=== PATIENT | female | born 1950 | race Caucasian/White ===

== ENCOUNTER 2019-10-26 06:42 | Day surgery (SDC) | payer MEDICARE, MEDICAID ==
[~2019-10-26] VITALS: Ht 167.6 cm; Wt 82.5 kg
[2019-10-26] MEDS ORDERED: normal saline 1000ml 1,000 ML IV SCH (07:10)
[2019-10-26 07:32] LABS: BASOPHILS # (AUTO) 0.1 X10'3 (0-0.2); BASOPHILS % (AUTO) 1.3 % (0-1); EOSINOPHILS # (AUTO) 0.3 X10'3 (0-0.9); HEMATOCRIT 38.7 % (35.0-45.0); LYMPHOCYTES # (AUTO) 3.1 X10'3 (1.1-4.8); LYMPHOCYTES % (AUTO) 41.2 % (21-51); MEAN CORPUSCULAR HEMOGLOBIN 30.2 PG (27.0-31.0); MEAN CORPUSCULAR HGB CONC 33.7 g/dL (33.0-36.5); MEAN CORPUSCULAR VOLUME 89.5 FL (78-98); MEAN PLATELET VOLUME 6.3 FL (7.4-10.4); MONOCYTES # (AUTO) 0.7 X10'3 (0-0.9); MONOCYTES % (AUTO) 9.4 % (2-12); NEUTROPHILS # (AUTO) 3.3 X10'3 (1.8-7.7); NEUTROPHILS % (AUTO) 44.1 % (42-75); PLATELET COUNT 317 X10'3 (140-440); RED BLOOD COUNT 4.32 X10'6 (4.20-5.60); RED CELL DISTRIBUTION WIDTH 15.5 % (11.5-14.5); WHITE BLOOD COUNT 7.6 X10'3 (4.5-11.0)
[2019-10-26] MEDS ORDERED: VARE0.5T PO (07:40)
[2019-10-26] MEDS ORDERED: ONDA8TAB65 PO (07:40)
[2019-10-26] MEDS ORDERED: VIT1TABL48 PO (07:40)
[2019-10-26] MEDS ORDERED: SEVE800T8 PO (07:40)
[2019-10-26] MEDS ORDERED: HCTZ25T PO (07:40)
[2019-10-26] MEDS ORDERED: DIPH25TA25 PO (07:40)
[2019-10-26] MEDS ORDERED: ASPI81TA52 PO (07:40)
[2019-10-26] MEDS ORDERED: FURO80TA3 PO (07:40)
[2019-10-26 07:41] LABS: ALBUMIN 3.5 G/DL (3.4-5.0); ANION GAP 8 (8-16); BLOOD UREA NITROGEN 39 MG/DL (7-18); BUN/CREATININE RATIO 7.4 (6.6-38.0); CALCIUM 8.9 MG/DL (8.5-10.1); CHLORIDE 98 MMOL/L (99-107); CREATININE 5.28 MG/DL (0.40-0.90); GLUCOSE 99 MG/DL (70-104); POTASSIUM 4.1 MMOL/L (3.5-5.1); SODIUM 138 MMOL/L (135-145); TOTAL CARBON DIOXIDE 31.7 MMOL/L (24-32); eGFR 8 ML/MIN
[2019-10-26 07:42] VITALS: BP 148/75
[2019-10-26] MEDS ORDERED: iohexol 300mg/ml 100ml inj. ONE (08:41)
[2019-10-26] MEDS ORDERED: fentaNYL/PF 50MCG/1 ML 2ML syringe ONE ×2 (08:41→09:07)
[2019-10-26] MEDS ORDERED: LIDOcaine 1%/PF 5ML 10 MG/ML VIAL ONE (08:41)
[2019-10-26] MEDS ORDERED: midazolam 2 mg/2 ml injection ONE ×2 (08:41→09:06)
[2019-10-26] MEDS ORDERED: heparin 1,000 UNITS/NS 500ml 500 ML ONE (08:41)
[2019-10-26 09:30] VITALS: BP 133/89
[2019-10-26 09:45] VITALS: BP 141/89
[2019-10-26 10:00] VITALS: BP 134/75
[2019-10-26 10:15] VITALS: BP 148/64
[2019-10-26 10:30] VITALS: BP 148/64
== END 2019-10-26 10:30 | disposition home or self-care (01) ==
LOC: SSTAY O 06:42
PROVIDERS: ATTEND Radiology Vascular & Interventional Radiology
DX: T82.858A Stenosis of other vascular prosthetic devices, implants and grafts, initial encounter (principal); E11.22 Type 2 diabetes mellitus with diabetic chronic kidney disease; I12.9 Hypertensive chronic kidney disease with stage 1 through stage 4 chronic kidney disease, or unspecified chronic kidney disease; N18.9 Chronic kidney disease, unspecified; Y83.2 Surgical operation with anastomosis, bypass or graft as the cause of abnormal reaction of the patient, or of later complication, without mention of misadventure at the time of the procedure; Y92.89 Other specified places as the place of occurrence of the external cause; Z99.2 Dependence on renal dialysis; Z90.710 Acquired absence of both cervix and uterus; Z90.49 Acquired absence of other specified parts of digestive tract; Z98.890 Other specified postprocedural states; Z79.82 Long term (current) use of aspirin; Z79.899 Other long term (current) drug therapy
CPT/HCPCS: 36415; 36902; 80048; 85025; 99152; 99153; C1725; C1769; C1894; J1644; J2250; J3010; Q9967

== ENCOUNTER 2019-11-02 12:27 | Observation (INO) | payer MEDICARE, MEDICAID ==
[2019-11-02] VITALS (14 sets, daily range): BP systolic 145–168; BP diastolic 54–75
[~2019-11-02] VITALS: Ht 167.6 cm; Wt 84.5 kg
[~2019-11-02 12:27] MED LIST: ASPI81TA52 PO; DIPH25TA25 PO; FURO80TA3 PO; HCTZ25T PO; ONDA8TAB65 PO; SEVE800T8 PO; VARE0.5T PO; VIT1TABL48 PO
[2019-11-02] MEDS ORDERED: aspirin 81mg tab.chew PO ONE (12:35)
[2019-11-02] MEDS ORDERED: CYCL-1 PO (13:06)
[2019-11-02] MEDS ORDERED: OMEP-50 PO (13:06)
--- NOTE | 2019-11-02 13:07 | NUR ---
: Gurwinder Ponce. phone number: [phone] he is parked in green subaru at handicapped parking spot at the front entrance of the er.
[2019-11-02 13:16] LABS: BASOPHILS # (AUTO) 0.1 X10'3 (0-0.2); BASOPHILS % (AUTO) 1.1 % (0-1); EOSINOPHILS # (AUTO) 0.1 X10'3 (0-0.9); EOSINOPHILS % (AUTO) 1.8 % (0-6); HEMATOCRIT 38.6 % (35.0-45.0); HEMOGLOBIN 12.7 g/dl (12.0-16.0); LYMPHOCYTES # (AUTO) 2.7 X10'3 (1.1-4.8); LYMPHOCYTES % (AUTO) 38.2 % (21-51); MEAN CORPUSCULAR HEMOGLOBIN 29.6 PG (27.0-31.0); MEAN CORPUSCULAR HGB CONC 32.8 g/dL (33.0-36.5); MEAN PLATELET VOLUME 6.6 FL (7.4-10.4); MONOCYTES # (AUTO) 0.5 X10'3 (0-0.9); MONOCYTES % (AUTO) 6.6 % (2-12); NEUTROPHILS # (AUTO) 3.7 X10'3 (1.8-7.7); NEUTROPHILS % (AUTO) 52.3 % (42-75); PLATELET COUNT 338 X10'3 (140-440); RED BLOOD COUNT 4.29 X10'6 (4.20-5.60); RED CELL DISTRIBUTION WIDTH 15.4 % (11.5-14.5); WHITE BLOOD COUNT 7.1 X10'3 (4.5-11.0)
[2019-11-02 13:32] LABS: PARTIAL THROMBOPLASTIN TIME 29 SECONDS (22-32)
[2019-11-02 13:45] LABS: ALANINE AMINOTRANSFERASE 19 U/L (12-78); ALBUMIN 3.6 G/DL (3.4-5.0); ALBUMIN/GLOBULIN RATIO 0.8 (1.1-1.5); ALKALINE PHOSPHATASE 69 IU/L (46-116); ANION GAP 11 (8-16); ASPARTATE AMINO TRANSFERASE 13 U/L (10-37); BILIRUBIN,TOTAL 0.3 MG/DL (0.1-1.0); BLOOD UREA NITROGEN 68 MG/DL (7-18); BUN/CREATININE RATIO 10.7 (6.6-38.0); CALCIUM 8.9 MG/DL (8.5-10.1); CHLORIDE 93 MMOL/L (99-107); CREATININE 6.37 MG/DL (0.40-0.90); GLUCOSE 103 MG/DL (70-104); POTASSIUM 3.6 MMOL/L (3.5-5.1); SODIUM 133 MMOL/L (135-145); TOTAL CARBON DIOXIDE 28.9 MMOL/L (24-32); eGFR 7 ML/MIN
[2019-11-02] MEDS ORDERED: potassium Cl 20 mEq SR tablet PO PRN ×2 (13:50)
[2019-11-02] MEDS ORDERED: magnesium Cl slow-release 64mg tablet PO PRN (13:50)
[2019-11-02] MEDS ORDERED: magnesium 4gm in 100ml NS 100 ML IV PRN (13:50)
[2019-11-02] MEDS ORDERED: magnesium 2GM in 50ml NS 50 ML IV PRN (13:50)
[2019-11-02] MEDS ORDERED: ondansetron/PF 4mg/2ml inj IV PRN (13:50)
[2019-11-02] MEDS ORDERED: potassium CL 10mEq/100ml bag 100 ML IV PRN ×2 (13:50)
[2019-11-02 13:59] LABS: MAGNESIUM 2.6 MG/DL (1.5-2.4)
--- NOTE | 2019-11-02 15:36 | NUR ---
Patient in room PCU 3027 from ED. I have received report from Evy WEST and had the opportunity to ask questions and assume patient care.
[2019-11-02] MEDS ORDERED: LIDOcaine 1% 30ml preserv. free vial ONE (17:46)
[2019-11-02] MEDS ORDERED: ceFAZolin 1000mg inj ONE ×2 (17:46→19:03)
--- NOTE | 2019-11-02 17:48 | NUR ---
Problems reprioritized. Patient report given, questions answered & plan of care reviewed with Warren WEST in OR, pt is taken to OR for Pacemaker placement.
[2019-11-02] MEDS ORDERED: midazolam 2 mg/2 ml injection ONE (18:10)
[2019-11-02] MEDS ORDERED: fentaNYL/PF 50MCG/1 ML 2ML syringe ONE (18:10)
--- NOTE | 2019-11-02 18:10 | NUR ---
Patient in room PCU 3027. I have received report from BRETT Kelsey and had the opportunity to ask questions and assume patient care.
--- NOTE | 2019-11-02 18:17 | NUR ---
Problems reprioritized. Patient report given, questions answered & plan of care reviewed with Brenda WEST.
[2019-11-02] MEDS ORDERED: LIDOcaine 1%/PF 5ML 10 MG/ML VIAL ONE (19:03)
[2019-11-02] MEDS ORDERED: propofol inj 20 ML IV ONE (19:03)
--- NOTE | 2019-11-02 19:15 | NUR ---
Received from OR via BED, accompanied by Anesthesiologist ASHLEY and report given by Anesthesiolgist. PATIENT A&OX4, DENIES PAIN, V/S WNL, EKG DONE AND SHOWED TO DR THOMASON AT 1930, SCD ON, 20G PIV RUE X2, DRESSING TO LEFT CHEST FOR PACER CDI WITH SLING ON AND 1L BAG FOR PRESSURE TO SURGICAL SITE PER DR THOMASON.
[2019-11-02] MEDS ORDERED: HYDROcodone/acetaminophen 10/325mg tab PO PRN (19:20)
[2019-11-02] MEDS: K and/or MAG REPLACEMENT MC SCH (19:50)
--- NOTE | 2019-11-02 19:55 | NUR ---
PATIENT A&OX4, DENIES PAIN, V/S WNL, PATIENTS TELE IN PCU, SCD ON, 20G PIV RUE X2, DRESSING TO LEFT CHEST FOR PACER CDI WITH SLING ON AND 1L BAG FOR PRESSURE TO SURGICAL SITE PER DR THOMASON. PATIENT TAKEN TO 3027B PCU AND HOOKED UP TO MONITORS IN [place] REPORT GIVEN TO BAND DIRECTOR WHO HAS TAKEN OVER PATIENT CARE.
--- NOTE | 2019-11-02 20:00 | NUR ---
Patient arrived in stable condition. A&Ox4, vital signs were stable on arrival and recorded. Patient denied pain and SOB.
[2019-11-02] MEDS: HYDROcodone/acetaminophen 5mg/325mg tablet PO PRN (21:48)
[2019-11-03] VITALS: BP 151/69
[2019-11-03] MEDS ORDERED: ceFAZolin 1GM/D5W- ADD-VANTAGE 50 ML IV SCH
--- NOTE | 2019-11-03 | NUR ---
Called MD to ask if 12 hr Troponin is wanted for 0030 or to be rescheduled because S/P pacemaker placement. said to cancel it at 0030 and reschedule for 0700.
[2019-11-03] MEDS: ceFAZolin 1GM/D5W- ADD-VANTAGE 50 ML IV SCH ×2 (01:41→07:44)
[2019-11-03 02:30] VITALS: BP 150/79
[2019-11-03] MEDS: HYDROcodone/acetaminophen 5mg/325mg tablet PO PRN ×2 (04:24→10:59)
[2019-11-03] MEDS: diphenhydrAMINE 25 MG/10 ML UD oral solution PO PRN ×2 (05:10→11:29)
[2019-11-03 06:00] VITALS: BP 161/69
--- NOTE | 2019-11-03 06:18 | NUR ---
Problems reprioritized. Patient report given, questions answered & plan of care reviewed with BRETT Kelsey.
--- NOTE | 2019-11-03 06:30 | NUR ---
Patient in room PCU 3027. I have received report from Brenda WEST and had the opportunity to ask questions and assume patient care.
[2019-11-03 07:08] LABS: BASOPHILS # (AUTO) 0.1 X10'3 (0-0.2); BASOPHILS % (AUTO) 0.9 % (0-1); EOSINOPHILS # (AUTO) 0.2 X10'3 (0-0.9); EOSINOPHILS % (AUTO) 2.9 % (0-6); HEMATOCRIT 36.3 % (35.0-45.0); HEMOGLOBIN 12.4 g/dl (12.0-16.0); LYMPHOCYTES # (AUTO) 2.2 X10'3 (1.1-4.8); LYMPHOCYTES % (AUTO) 32.5 % (21-51); MEAN CORPUSCULAR HEMOGLOBIN 30.4 PG (27.0-31.0); MEAN CORPUSCULAR HGB CONC 34.2 g/dL (33.0-36.5); MEAN CORPUSCULAR VOLUME 88.8 FL (78-98); MEAN PLATELET VOLUME 6.5 FL (7.4-10.4); MONOCYTES # (AUTO) 0.5 X10'3 (0-0.9); MONOCYTES % (AUTO) 7.1 % (2-12); NEUTROPHILS # (AUTO) 3.8 X10'3 (1.8-7.7); NEUTROPHILS % (AUTO) 56.6 % (42-75); PLATELET COUNT 303 X10'3 (140-440); RED BLOOD COUNT 4.09 X10'6 (4.20-5.60); RED CELL DISTRIBUTION WIDTH 14.9 % (11.5-14.5); WHITE BLOOD COUNT 6.8 X10'3 (4.5-11.0)
[2019-11-03 07:39] LABS: ALBUMIN 3.3 G/DL (3.4-5.0); ANION GAP 11 (8-16); BLOOD UREA NITROGEN 74 MG/DL (7-18); BUN/CREATININE RATIO 12.2 (6.6-38.0); CALCIUM 8.9 MG/DL (8.5-10.1); CHLORIDE 96 MMOL/L (99-107); CREATININE 6.06 MG/DL (0.40-0.90); GLUCOSE 94 MG/DL (70-104); MAGNESIUM 2.5 MG/DL (1.5-2.4); POTASSIUM 3.2 MMOL/L (3.5-5.1); SODIUM 135 MMOL/L (135-145); TOTAL CARBON DIOXIDE 27.9 MMOL/L (24-32); TROPONIN I 0.16 NG/ML (0.0-0.05); eGFR 7 ML/MIN
[2019-11-03] MEDS ORDERED: normal saline 1000ml 250 ML IV PRN (08:00)
[2019-11-03] MEDS ORDERED: epoetin 20,000 units/ml inj IV ONE (08:00)
[2019-11-03] MEDS: K and/or MAG REPLACEMENT MC SCH (08:00)
[2019-11-03] MEDS ORDERED: normal saline 1000ml 100 ML IV PRN (08:00)
[2019-11-03] MEDS ORDERED: LIDOcaine 1% (10mg/ml) 2ml vial SQ ONE (08:00)
[2019-11-03 11:00] VITALS: BP 151/65
--- NOTE | 2019-11-03 13:55 | NUR ---
PAGER ID: [phone] MESSAGE: [id number] Deepali Ponce: Pt is complaining of muscle spasms, takes cyclobenzaprine 10 mg prn, can we continue her home meds? thanks mariam [phone]
[2019-11-03] MEDS ORDERED: sevelamer carbonate 800mg tablet PO SCH (14:00)
[2019-11-03] MEDS ORDERED: metoprolol succinate 25mg (24-HOUR) SR. Tablet PO SCH (14:00)
[2019-11-03] MEDS ORDERED: non-formulary drug (Ondansetron HCl 1 TAB) PO PRN (14:00)
[2019-11-03] MEDS ORDERED: cyclobenzaprine 10mg tablet PO PRN (14:00)
[2019-11-03] MEDS ORDERED: varenicline tartrate 0.5mg tablet PO SCH (14:00)
[2019-11-03] MEDS ORDERED: DIPHENHYDRAMINE HCL PO PRN (14:00)
[2019-11-03] MEDS ORDERED: aspirin 81mg tablet.DR PO SCH (14:00)
[2019-11-03] MEDS ORDERED: HYDROchlorothiazide 25mg tablet PO SCH (14:00)
[2019-11-03 15:00] VITALS: BP 145/69
--- NOTE | 2019-11-03 15:45 | NUR ---
PAGER ID: [phone] MESSAGE: [id number] Deepali Ponce: Do you want to include Metoprolol succinate 25mg daily to discharge med list? Dr. Mckeon had me give earlier due to patient's HR sustained in 130's, dropped to 70's-80's after. thanks Troy [phone]
--- NOTE | 2019-11-03 15:58 | NUR ---
spoke to Dr. Bajwa in regards to adding metoprolol to discharge med list, was informed to make sure aircraft launch and recovery technician is ok with it, spoke to dr. foy answering service, waiting for response.
--- NOTE | 2019-11-03 17:50 | NUR ---
pt is stable for discharge per md orders, discharge instructions reviewed with pt and all questions answered, no new medication prescriptions, tele monitor removed, PIV dc'ed and clean dry dressing in place, pt discharges to home @ 1730, wheeled down to lobby with hospital staff to private vehicle with spouse, all belongings w/ pt at time of discharge.
[2019-11-03] MEDS ORDERED: furosemide 40mg tablet PO SCH (20:00)
[2019-11-04] MEDS ORDERED: vitamin B comp w/Vit. C tab 1 TAB TABLET PO SCH (08:00)
--- NOTE | 2019-11-06 15:05 | NUR ---
Case Management DC follow up: spoke to pt via telephone: Reports: "doing okay", "still feels like a truck drover over me" post pacemaker implant. states, last night 11/05/19, fellt a little light headed, went to bed, and feels just fine this morning. Denies acute/continuous CP, SOB, resp distress, emergent general pain, NV, dizziness, abd pain, CARRION, blurry vision, dizziness, syncope episodes, diaphoresis, fever. No s/s infection to implant site. Verbalizes understanding of Rx medications/continued/new, why prescribed. Taking as ordered, no ase noted r/t polypharmacy. Verbalizes understanding of s/s that warrant 9-11/ER visit for evaluation. Acknowledges importance of scheduling/keeping follow-up w/PCP MARTHA Edwards 11/30/19, specialist/manager globalCarlo 11/17/2019. Needs met, questions answered at DC. No further questions at this time.
== END 2019-11-03 18:03 | disposition home or self-care (01) ==
LOC: ER 12:27 → ED HOLD 13:49 → PCU 3S 15:07
PROVIDERS: ADMIT Internal Medicine; ATTEND Internal Medicine
DX: I45.9 Conduction disorder, unspecified (principal); R00.1 Bradycardia, unspecified; I44.1 Atrioventricular block, second degree; R42 Dizziness and giddiness; I12.0 Hypertensive chronic kidney disease with stage 5 chronic kidney disease or end stage renal disease; E11.22 Type 2 diabetes mellitus with diabetic chronic kidney disease; N18.6 End stage renal disease; K21.9 Gastro-esophageal reflux disease without esophagitis; Z99.2 Dependence on renal dialysis; Z90.710 Acquired absence of both cervix and uterus; Z79.899 Other long term (current) drug therapy; Z88.2 Allergy status to sulfonamides; Z91.040 Latex allergy status; Z91.048 Other nonmedicinal substance allergy status
CPT/HCPCS: 33208; 36415; 71045; 76000; 80048; 80053; 83735; 84484; 85025; 85610; 85730; 86885; 86900; 86901; 87081; 93005; 96365; 96366; 96375; 99291; C1785; G0378; J0690; J2001; J2250; J2405; J2704; J3010; J7040; Q0163; 90935; A4215; A4565; A4615; A6258; A7000; G0257

== ENCOUNTER 2019-11-10 13:44 | Inpatient (IN) | payer MEDICARE, MEDICAID ==
[~2019-11-10] VITALS: Ht 167.6 cm; Wt 183.4 kg
[~2019-11-10 13:44] MED LIST changes: +CYCL-1 PO; +OMEP-50 PO
[2019-11-10 14:23] LABS: BASOPHILS # (AUTO) 0.1 X10'3 (0-0.2); BASOPHILS % (AUTO) 0.8 % (0-1); EOSINOPHILS # (AUTO) 0.1 X10'3 (0-0.9); EOSINOPHILS % (AUTO) 0.7 % (0-6); HEMATOCRIT 39.3 % (35.0-45.0); HEMOGLOBIN 13.2 g/dl (12.0-16.0); LYMPHOCYTES # (AUTO) 1.8 X10'3 (1.1-4.8); LYMPHOCYTES % (AUTO) 23.8 % (21-51); MEAN CORPUSCULAR HEMOGLOBIN 30.1 PG (27.0-31.0); MEAN CORPUSCULAR HGB CONC 33.6 g/dL (33.0-36.5); MEAN CORPUSCULAR VOLUME 89.4 FL (78-98); MEAN PLATELET VOLUME 6.7 FL (7.4-10.4); MONOCYTES # (AUTO) 0.4 X10'3 (0-0.9); NEUTROPHILS # (AUTO) 5.3 X10'3 (1.8-7.7); NEUTROPHILS % (AUTO) 69.7 % (42-75); PLATELET COUNT 343 X10'3 (140-440); RED BLOOD COUNT 4.39 X10'6 (4.20-5.60); RED CELL DISTRIBUTION WIDTH 14.5 % (11.5-14.5); WHITE BLOOD COUNT 7.6 X10'3 (4.5-11.0)
[2019-11-10 14:32] LABS: ALBUMIN 3.4 G/DL (3.4-5.0); ALBUMIN/GLOBULIN RATIO 0.7 (1.1-1.5); ALKALINE PHOSPHATASE 65 IU/L (46-116); ANION GAP 14 (8-16); ASPARTATE AMINO TRANSFERASE 14 U/L (10-37); BILIRUBIN,TOTAL 0.5 MG/DL (0.1-1.0); BLOOD UREA NITROGEN 61 MG/DL (7-18); BUN/CREATININE RATIO 9.9 (6.6-38.0); CALCIUM 9.5 MG/DL (8.5-10.1); CHLORIDE 88 MMOL/L (99-107); CREATININE 6.18 MG/DL (0.40-0.90); D-DIMER 1.51 MG/L FEU (0-0.50); GLUCOSE 196 MG/DL (70-104); POTASSIUM 3.5 MMOL/L (3.5-5.1); SODIUM 128 MMOL/L (135-145); TOTAL PROTEIN 8.2 G/DL (6.4-8.2); eGFR 7 ML/MIN
[2019-11-10 14:33] LABS: ALANINE AMINOTRANSFERASE < 6 U/L (12-78)
[2019-11-10 14:34] LABS: TROPONIN I < 0.04 NG/ML (0.0-0.05)
[2019-11-10] MEDS ORDERED: proCHLORperazine 10 MG/2 ml inj ONE (15:20)
[2019-11-10] MEDS ORDERED: vancomycin 1,000mg inj ONE (15:21)
[2019-11-10] MEDS ORDERED: LIDOcaine 1% W/epiNEPHrine 1:100,000 20ml vial ONE (15:21)
[2019-11-10] MEDS ORDERED: fentaNYL/PF 50MCG/1 ML 2ML syringe ONE (15:21)
[2019-11-10] MEDS ORDERED: ceFAZolin 1000mg inj ONE (15:21)
[2019-11-10] MEDS ORDERED: midazolam 2 mg/2 ml injection ONE (15:21)
--- NOTE | 2019-11-10 15:21 | NUR ---
Stool sample collected and sent to the lab.
[2019-11-10] MEDS ORDERED: HYDROcodone/acetaminophen 5mg/325mg tablet PO PRN (15:30)
[2019-11-10] MEDS ORDERED: acetaminophen 325mg tablet PO PRN (15:30)
--- NOTE | 2019-11-10 15:35 | NUR ---
Pt up to [facility] for another BM, which is liquid.
--- NOTE | 2019-11-10 15:50 | NUR ---
Brennan 2 pink top and a green top via butterfly needle and vacutainer from right ac. Bandaid applied.
--- NOTE | 2019-11-10 16:09 | NUR ---
Called PCU and the pt is no longer going to bed 3020A, but instead 3008A so that she can be in a negative pressure room. They are currently contacting [facility] to clean the new room and then will be able to take report and the patient after that.
--- NOTE | 2019-11-10 17:57 | NUR ---
Called to give report to PCU and spoke to Kadi, charge nurse who states that it is shift change and the auto parts counter person nurse, Zakia will call as soon as she is done with report.
[2019-11-10] MEDS ORDERED: cyclobenzaprine 10mg tablet PO PRN (19:05)
[2019-11-10 19:30] VITALS: BP 168/62
[2019-11-10] MEDS ORDERED: ondansetron 4mg rapidly disintigrating tab PO PRN (19:30)
--- NOTE | 2019-11-10 19:30 | NUR ---
pt arrived to PCU unit from ER via sherylrjayson, pt is alert and oriented, pt is not in any respiratory distress, will continue to monitor pt
[2019-11-10] MEDS ORDERED: docusate sod 100mg capsule PO SCH (20:00)
[2019-11-10] MEDS: ondansetron/PF 4mg/2ml inj IV PRN (20:33)
[2019-11-10] MEDS: heparin, porcine 5000 units/ml vial SQ SCH (20:33)
[2019-11-10 22:00] VITALS: BP 154/71
--- NOTE | 2019-11-10 23:34 | NUR ---
PAGER ID: [phone] MESSAGE: Deepali Kris [id number] pt is nausea and vomiting, and zofran administered and was not helpful. was wondering if i could get something else ordered please? Thank you Tita WEST [phone]
[2019-11-11 02:00] VITALS: BP 159/74
[2019-11-11 06:00] VITALS: BP 113/43
--- NOTE | 2019-11-11 06:13 | NUR ---
Problems reprioritized. Patient report given, questions answered & plan of care reviewed with Rashida WEST.
--- NOTE | 2019-11-11 06:32 | NUR ---
Patient in room PCU 3010. I have received report from Tita WEST and had the opportunity to ask questions and assume patient care.
[2019-11-11] MEDS: varenicline tartrate 0.5mg tablet PO SCH (07:24)
[2019-11-11] MEDS: aspirin 81mg tablet.DR PO SCH (07:24)
[2019-11-11] MEDS: vitamin B comp w/Vit. C tab 1 TAB TABLET PO SCH (07:24)
[2019-11-11] MEDS: HYDROchlorothiazide 25mg tablet PO SCH (07:24)
[2019-11-11] MEDS: furosemide 40mg tablet PO SCH ×2 (07:24→19:33)
[2019-11-11] MEDS: sevelamer carbonate 800mg tablet PO SCH ×3 (07:24→17:28)
[2019-11-11] MEDS: pantoprazole 40mg Tablet.DR PO SCH (07:24)
[2019-11-11] MEDS: heparin, porcine 5000 units/ml vial SQ SCH ×2 (07:25→19:33)
[2019-11-11] MEDS ORDERED: normal saline 1000ml 250 ML IV PRN (08:00)
[2019-11-11] MEDS ORDERED: heparin 1,000 units/ml 10ml inj IV ONE (08:00)
[2019-11-11] MEDS ORDERED: LIDOcaine 1% (10mg/ml) 2ml vial SQ ONE ×2 (08:00→11:55)
[2019-11-11 09:23] LABS: BASOPHILS # (AUTO) 0.1 X10'3 (0-0.2); BASOPHILS % (AUTO) 0.9 % (0-1); EOSINOPHILS # (AUTO) 0.2 X10'3 (0-0.9); EOSINOPHILS % (AUTO) 2.5 % (0-6); HEMATOCRIT 37.4 % (35.0-45.0); HEMOGLOBIN 12.5 g/dl (12.0-16.0); LYMPHOCYTES # (AUTO) 2.1 X10'3 (1.1-4.8); LYMPHOCYTES % (AUTO) 29.5 % (21-51); MEAN CORPUSCULAR HEMOGLOBIN 29.8 PG (27.0-31.0); MEAN CORPUSCULAR HGB CONC 33.3 g/dL (33.0-36.5); MEAN CORPUSCULAR VOLUME 89.5 FL (78-98); MEAN PLATELET VOLUME 6.8 FL (7.4-10.4); MONOCYTES # (AUTO) 0.6 X10'3 (0-0.9); MONOCYTES % (AUTO) 8.3 % (2-12); NEUTROPHILS # (AUTO) 4.3 X10'3 (1.8-7.7); NEUTROPHILS % (AUTO) 58.8 % (42-75); PLATELET COUNT 319 X10'3 (140-440); RED BLOOD COUNT 4.18 X10'6 (4.20-5.60); RED CELL DISTRIBUTION WIDTH 14.6 % (11.5-14.5); WHITE BLOOD COUNT 7.3 X10'3 (4.5-11.0)
[2019-11-11 09:33] LABS: ALANINE AMINOTRANSFERASE 8 U/L (12-78); ALBUMIN 3.1 G/DL (3.4-5.0); ALBUMIN/GLOBULIN RATIO 0.7 (1.1-1.5); ALKALINE PHOSPHATASE 63 IU/L (46-116); ANION GAP 7 (8-16); ASPARTATE AMINO TRANSFERASE 16 U/L (10-37); BILIRUBIN,TOTAL 0.3 MG/DL (0.1-1.0); BLOOD UREA NITROGEN 71 MG/DL (7-18); BUN/CREATININE RATIO 10.4 (6.6-38.0); CALCIUM 9.1 MG/DL (8.5-10.1); CHLORIDE 92 MMOL/L (99-107); CREATININE 6.83 MG/DL (0.40-0.90); GLUCOSE 120 MG/DL (70-104); POTASSIUM 3.2 MMOL/L (3.5-5.1); SODIUM 128 MMOL/L (135-145); TOTAL CARBON DIOXIDE 28.6 MMOL/L (24-32); TOTAL PROTEIN 7.4 G/DL (6.4-8.2); eGFR 6 ML/MIN
[2019-11-11 09:36] LABS: MAGNESIUM 2.4 MG/DL (1.5-2.4); PHOSPHORUS 8.9 MG/DL (2.3-4.5)
[2019-11-11 10:28] LABS: C DIFF ANTIGEN NEGATIVE (NEGATIVE); C DIFF SPECIMEN=DIARRHEA? ACCEPTABLE; C DIFFICILE TOXINS A&B NEGATIVE (Neg)
[2019-11-11 11:00] VITALS: BP 106/42
[2019-11-11] MEDS ORDERED: potassium Cl 20 mEq SR tablet PO STA (11:10)
[2019-11-11 15:00] VITALS: BP_SYST 126; BP_SYST 142; BP_DIAS 51; BP_DIAS 79
[2019-11-11 18:00] VITALS: BP 131/49
--- NOTE | 2019-11-11 18:05 | NUR ---
Patient in room PCU 3010. I have received report from Rashida WEST and had the opportunity to ask questions and assume patient care.
--- NOTE | 2019-11-11 18:21 | NUR ---
Problems reprioritized. Patient report given, questions answered & plan of care reviewed with Mian WEST.
[2019-11-11 22:00] VITALS: BP 143/56
[2019-11-12] MEDS: diphenhydrAMINE 25mg capsule PO PRN ×2 (00:25→07:40)
[2019-11-12] MEDS ORDERED: diphenhydrAMINE 25mg capsule PO ONE (01:45)
[2019-11-12 02:00] VITALS: BP 129/51
[2019-11-12 05:41] LABS: BASOPHILS # (AUTO) 0.1 X10'3 (0-0.2); BASOPHILS % (AUTO) 1.2 % (0-1); EOSINOPHILS # (AUTO) 0.3 X10'3 (0-0.9); EOSINOPHILS % (AUTO) 3.9 % (0-6); HEMATOCRIT 34.8 % (35.0-45.0); HEMOGLOBIN 11.7 g/dl (12.0-16.0); LYMPHOCYTES # (AUTO) 2.9 X10'3 (1.1-4.8); MEAN CORPUSCULAR HGB CONC 33.7 g/dL (33.0-36.5); MEAN PLATELET VOLUME 6.6 FL (7.4-10.4); MONOCYTES # (AUTO) 0.6 X10'3 (0-0.9); MONOCYTES % (AUTO) 8.4 % (2-12); NEUTROPHILS # (AUTO) 2.9 X10'3 (1.8-7.7); NEUTROPHILS % (AUTO) 43.5 % (42-75); PLATELET COUNT 290 X10'3 (140-440); RED BLOOD COUNT 3.92 X10'6 (4.20-5.60); RED CELL DISTRIBUTION WIDTH 14.8 % (11.5-14.5); WHITE BLOOD COUNT 6.7 X10'3 (4.5-11.0)
[2019-11-12 05:52] LABS: ALANINE AMINOTRANSFERASE 9 U/L (12-78); ALBUMIN/GLOBULIN RATIO 0.8 (1.1-1.5); ALKALINE PHOSPHATASE 59 IU/L (46-116); ANION GAP 10 (8-16); ASPARTATE AMINO TRANSFERASE 16 U/L (10-37); BILIRUBIN,TOTAL 0.4 MG/DL (0.1-1.0); BLOOD UREA NITROGEN 58 MG/DL (7-18); BUN/CREATININE RATIO 9.8 (6.6-38.0); CALCIUM 8.9 MG/DL (8.5-10.1); CHLORIDE 93 MMOL/L (99-107); GLUCOSE 74 MG/DL (70-104); MAGNESIUM 2.2 MG/DL (1.5-2.4); PHOSPHORUS 6.3 MG/DL (2.3-4.5); POTASSIUM 3.3 MMOL/L (3.5-5.1); SODIUM 130 MMOL/L (135-145); TOTAL CARBON DIOXIDE 27.3 MMOL/L (24-32); eGFR 7 ML/MIN
--- NOTE | 2019-11-12 06:32 | NUR ---
Problems reprioritized. Patient report given, questions answered & plan of care reviewed with Alex WEST.
--- NOTE | 2019-11-12 06:35 | NUR ---
Patient in room PCU 3010. I have received report from Mian WEST and had the opportunity to ask questions and assume patient care. Patient is resting in bed at this time, offers no complaints, will continue to monitor.
[2019-11-12 07:00] VITALS: BP 127/45
[2019-11-12] MEDS: pantoprazole 40mg Tablet.DR PO SCH (07:39)
[2019-11-12] MEDS: heparin, porcine 5000 units/ml vial SQ SCH (07:40)
[2019-11-12] MEDS: varenicline tartrate 0.5mg tablet PO SCH (07:41)
[2019-11-12] MEDS: furosemide 40mg tablet PO SCH (07:41)
[2019-11-12] MEDS: aspirin 81mg tablet.DR PO SCH (07:41)
[2019-11-12] MEDS: sevelamer carbonate 800mg tablet PO SCH (07:45)
[2019-11-12] MEDS: vitamin B comp w/Vit. C tab 1 TAB TABLET PO SCH (07:46)
[2019-11-12] MEDS ORDERED: metoprolol succinate 25mg (24-HOUR) SR. Tablet PO SCH (08:00)
[2019-11-12] MEDS ORDERED: heparin 1,000 units/ml 10ml inj IV ONE (08:00)
[2019-11-12] MEDS ORDERED: LIDOcaine 1% (10mg/ml) 2ml vial SQ ONE (08:00)
[2019-11-12 11:00] VITALS: BP 136/55
[2019-11-12] MEDS: HYDROchlorothiazide 25mg tablet PO SCH (11:41)
[2019-11-12] MEDS: ondansetron/PF 4mg/2ml inj IV PRN (12:22)
--- NOTE | 2019-11-12 13:58 | NUR ---
Patient was discharged home at 1357. Patient reviewed discharge packet before signing and being sent home with patient. All belongings were sent with patient, no new RX were ordered, PIV was removed with cannula intact, tele monitoring was d/c'd. Patient left via private vehicle with .
== END 2019-11-12 13:55 | disposition home or self-care (01) | DRG 391 ==
LOC: ER 13:44 → ED HOLD 15:30 → CANBEDREQ 16:13 → PCU 3S 19:00
PROVIDERS: ADMIT Internal Medicine Critical Care Medicine; ATTEND Internal Medicine Critical Care Medicine
PROC: 4B02XSZ Measurement of Cardiac Pacemaker, External Approach (ICD-10-PCS; principal; 2019-11-10)
PROC: 5A1D70Z Performance of Urinary Filtration, Intermittent, Less than 6 Hours Per Day (ICD-10-PCS; 2019-11-11)
DX: K52.9 Noninfective gastroenteritis and colitis, unspecified (principal); N18.6 End stage renal disease; I12.0 Hypertensive chronic kidney disease with stage 5 chronic kidney disease or end stage renal disease; I45.2 Bifascicular block; E86.0 Dehydration; I44.1 Atrioventricular block, second degree; I95.3 Hypotension of hemodialysis; K21.9 Gastro-esophageal reflux disease without esophagitis; Z79.899 Other long term (current) drug therapy; Z99.2 Dependence on renal dialysis; Z88.2 Allergy status to sulfonamides; Z91.040 Latex allergy status; Z91.041 Radiographic dye allergy status; Z79.82 Long term (current) use of aspirin
CPT/HCPCS: 36415; 71045; 71250; 74176; 80053; 83735; 83880; 84100; 84484; 85025; 85379; 86885; 86900; 86901; 87045; 87046; 87081; 87324; 87449; 89055; 93005; 96374; 99285; G0257; G0378; J0690; J0780; J1644; J2001; J2250; J2405; J3010; J3370; Q0163

== ENCOUNTER 2020-10-30 13:56 | Observation (INO) | payer BC, MEDICAID ==
[~2020-10-30] VITALS: Ht 167.6 cm; Wt 89.8 kg
[2020-10-30] VITALS (8 sets, daily range): BP systolic 126–165; BP diastolic 59–83
[~2020-10-30 13:56] MED LIST changes: -FURO80TA3 PO; -HCTZ25T PO; +HYDR25TA5 PO; +LIDOcaine 1% (10mg/ml) 2ml vial SQ ONE; +heparin 1,000 units/ml 10ml inj IV ONE; +normal saline 1000ml 250 ML IV PRN
[2020-10-30] MEDS ORDERED: diphenhydrAMINE 25mg capsule PO PRN ×2 (14:25→17:05)
[2020-10-30] MEDS ORDERED: methylPREDNISolone sod succ 125mg/2ml vial IV ONE (14:25)
[2020-10-30] MEDS ORDERED: nitroGLYCERIN 0.4mg SUBLingual tab SL PRN ×3 (14:25→17:05)
[2020-10-30] MEDS ORDERED: LORazepam 0.5 MG tablet PO PRN (14:25)
[2020-10-30] MEDS ORDERED: LORA-269 PO (14:38)
[2020-10-30] MEDS ORDERED: FURO80TA3 PO (14:38)
[2020-10-30] MEDS ORDERED: NITR0.4T48 SL (14:38)
[2020-10-30] MEDS ORDERED: FOSI10TA6 PO (14:38)
[2020-10-30] MEDS ORDERED: METO-395 PO (14:38)
[2020-10-30] MEDS ORDERED: B-CO1TAB PO (14:43)
[2020-10-30] MEDS ORDERED: AMLO5TAB PO (14:43)
[2020-10-30] MEDS ORDERED: FERR210T PO (14:43)
[2020-10-30] MEDS ORDERED: CYCL-1 PO (14:43)
[2020-10-30] MEDS ORDERED: ACET-1025 PO (14:43)
[2020-10-30] MEDS ORDERED: iohexol 350MG/ML 100ml bottle IV ONE (14:44)
[2020-10-30] MEDS ORDERED: LIDOcaine 1% (10mg/ml)w/preservative injection 20ml MDV ONE (14:44)
[2020-10-30] MEDS ORDERED: fentaNYL/PF 50MCG/1 ML 2ML syringe ONE (14:44)
[2020-10-30] MEDS ORDERED: midazolam 1 mg/ML 2ml injection ONE (14:44)
[2020-10-30] MEDS ORDERED: IOHEXOL 350 MG/ML INFUS..BTL 75ML IV ONE (14:44)
[2020-10-30 15:11] LABS: PHOSPHORUS 4.2 MG/DL (2.3-4.5)
--- NOTE | 2020-10-30 15:44 | NUR ---
Patient will go to room 315 on [facility] unit per nursing loss prevention supervisor for dialysis per md orders. Patients notified of room number on 3rd floor.
--- NOTE | 2020-10-30 16:53 | NUR ---
Paged Dr. Smalls regarding patient being admitted to floor from heart cath. PAGER ID: [phone] MESSAGE: [phone]. ROBERTA VELASQUEZ. PATIENT HAS ARRIVED TO UNIT FROM CATH. THANK YOU. FELICIA WEST X [phone]
[2020-10-30] MEDS ORDERED: OXAZEpam 15mg capsule PO PRN (17:05)
[2020-10-30] MEDS ORDERED: HYDROcodone/acetaminophen 5mg/325mg tablet PO PRN ×2 (17:05→17:15)
[2020-10-30] MEDS ORDERED: LORazepam 1 MG tablet PO PRN (17:05)
[2020-10-30] MEDS ORDERED: acetaminophen 325mg tablet PO PRN ×2 (17:05→17:15)
[2020-10-30] MEDS ORDERED: ondansetron 4mg rapidly disintigrating tab PO PRN (17:05)
[2020-10-30] MEDS ORDERED: normal saline 1000ml 1,000 ML IV SCH (17:05)
[2020-10-30] MEDS ORDERED: proCHLORperazine 10 MG/2 ml inj IV PRN (17:05)
[2020-10-30] MEDS ORDERED: HYDROcodone/acetaminophen 10/325mg tab PO PRN (17:05)
[2020-10-30] MEDS ORDERED: pantoprazole 40mg Tablet.DR PO PRN (17:05)
[2020-10-30] MEDS ORDERED: morphine 2 MG/ML inj. syringe IV PRN (17:15)
[2020-10-30] MEDS ORDERED: magnesium hydroxide 30ml (MOM) UD suspension PO PRN (17:15)
[2020-10-30] MEDS ORDERED: mag hydrox/Alum hydrox/simeth 30ml oral suspension PO PRN (17:15)
[2020-10-30] MEDS ORDERED: ondansetron/PF 4mg/2ml inj IV PRN (17:15)
--- NOTE | 2020-10-30 18:00 | NUR ---
Problems reprioritized. Patient report received, questions answered & plan of care reviewed with Samantha WEST. Patient stable at transfer of care.
[2020-10-30] MEDS: ondansetron/PF 4mg/2ml inj IV PRN ×2 (18:19→22:29)
[2020-10-30 18:29] LABS: BASOPHILS % (AUTO) 0.1 % (0-1); EOSINOPHILS % (AUTO) 0 % (0-6); HEMATOCRIT 33.1 % (35.0-45.0); HEMOGLOBIN 11.1 g/dl (12.0-16.0); LYMPHOCYTES # (AUTO) 0.7 X10'3 (1.1-4.8); MEAN CORPUSCULAR HEMOGLOBIN 31.4 PG (27.0-31.0); MEAN CORPUSCULAR HGB CONC 33.4 g/dL (33.0-36.5); MEAN PLATELET VOLUME 6.7 FL (7.4-10.4); MONOCYTES % (AUTO) 0.5 % (2-12); NEUTROPHILS # (AUTO) 8.3 X10'3 (1.8-7.7); NEUTROPHILS % (AUTO) 91.4 % (42-75); PLATELET COUNT 283 X10'3 (140-440); RED BLOOD COUNT 3.52 X10'6 (4.20-5.60); RED CELL DISTRIBUTION WIDTH 13.4 % (11.5-14.5)
--- NOTE | 2020-10-30 18:39 | NUR ---
Problems reprioritized. Patient report given, questions answered & plan of care reviewed with BRETT Howell.
[2020-10-30 18:42] LABS: ALBUMIN 3.3 G/DL (3.4-5.0); ANION GAP 10 (8-16); BLOOD UREA NITROGEN 28 MG/DL (7-18); BUN/CREATININE RATIO 7.1 (6.6-38.0); CALCIUM 8.1 MG/DL (8.5-10.1); CHLORIDE 96 MMOL/L (99-107); CREATININE 3.93 MG/DL (0.40-0.90); GLUCOSE 186 MG/DL (70-104); PHOSPHORUS 4.2 MG/DL (2.3-4.5); POTASSIUM 3.8 MMOL/L (3.5-5.1); SODIUM 135 MMOL/L (135-145); TOTAL CARBON DIOXIDE 28.9 MMOL/L (24-32); eGFR 11 ML/MIN
[2020-10-30] MEDS: furosemide 40mg tablet PO SCH (20:00)
[2020-10-30] MEDS ORDERED: lisinopril 10 MG tablet PO SCH (21:00)
[2020-10-31] MEDS ORDERED: cyclobenzaprine 10mg tablet PO PRN
[2020-10-31 02:00] VITALS: BP 171/50
[2020-10-31 06:00] VITALS: BP 152/71
--- NOTE | 2020-10-31 06:00 | NUR ---
Problems reprioritized. Patient report given, questions answered & plan of care reviewed with BRETT Singh. Patient stable at transfer of care
--- NOTE | 2020-10-31 06:10 | NUR ---
Patient in room MED 315. I have received report from BRETT Howell and had the opportunity to ask questions and assume patient care.
[2020-10-31 06:25] LABS: BASOPHILS % (AUTO) 0 % (0-1); EOSINOPHILS % (AUTO) 0 % (0-6); HEMATOCRIT 37.7 % (35.0-45.0); HEMOGLOBIN 12.2 g/dl (12.0-16.0); LYMPHOCYTES # (AUTO) 1.1 X10'3 (1.1-4.8); LYMPHOCYTES % (AUTO) 8.9 % (21-51); MEAN CORPUSCULAR HEMOGLOBIN 31.2 PG (27.0-31.0); MEAN CORPUSCULAR HGB CONC 32.4 g/dL (33.0-36.5); MEAN CORPUSCULAR VOLUME 96.3 FL (78-98); MONOCYTES # (AUTO) 0.8 X10'3 (0-0.9); MONOCYTES % (AUTO) 6.5 % (2-12); NEUTROPHILS # (AUTO) 10.4 X10'3 (1.8-7.7); NEUTROPHILS % (AUTO) 84.6 % (42-75); PLATELET COUNT 316 X10'3 (140-440); RED BLOOD COUNT 3.92 X10'6 (4.20-5.60); RED CELL DISTRIBUTION WIDTH 13.5 % (11.5-14.5); WHITE BLOOD COUNT 12.3 X10'3 (4.5-11.0)
[2020-10-31 06:31] LABS: ALBUMIN 3.3 G/DL (3.4-5.0); ANION GAP 10 (8-16); BLOOD UREA NITROGEN 20 MG/DL (7-18); BUN/CREATININE RATIO 6.1 (6.6-38.0); CALCIUM 9.5 MG/DL (8.5-10.1); CHLORIDE 99 MMOL/L (99-107); CREATININE 3.28 MG/DL (0.40-0.90); GLUCOSE 171 MG/DL (70-104); POTASSIUM 3.9 MMOL/L (3.5-5.1); SODIUM 137 MMOL/L (135-145); TOTAL CARBON DIOXIDE 28.1 MMOL/L (24-32); eGFR 14 ML/MIN
[2020-10-31] MEDS ORDERED: vitamin B comp w/Vit. C tab 1 TAB TABLET PO SCH (08:00)
[2020-10-31] MEDS ORDERED: metoprolol succinate 25mg (24-HOUR) SR. Tablet PO SCH (08:00)
[2020-10-31] MEDS ORDERED: amLODIPine 5mg tablet PO SCH (08:00)
[2020-10-31] MEDS ORDERED: aspirin 81mg tablet.DR PO SCH (08:00)
[2020-10-31] MEDS ORDERED: HYDROchlorothiazide 25mg tablet PO SCH (08:00)
[2020-10-31] MEDS: furosemide 40mg tablet PO SCH (08:28)
[2020-10-31 11:00] VITALS: BP 143/52
--- NOTE | 2020-10-31 12:11 | NUR ---
reviewed d/c ppwk - pt had opportunity to ask questions and get answers. Pt will leave bldg when ready.
--- NOTE | 2020-10-31 12:30 | NUR ---
All d/c paperwork has been reviewed with patient and patient spouse. Pt had the opportunity to ask questions and get answers. PIV was removed and pressure held for 2 min - Minimal bleeding and pt tolerated well. Pt was removed from bedside tele and was able to dress herself with no assistance. No new medications so nothing sent to her pharmacy. Pt was wheeled out in W/C with and nurse staff. Pt left by private vehicle. No additional questions per pt.
[2020-11-01 10:31] LABS: HBSAG SCREEN Negative (Negative)
--- NOTE | 2020-11-01 14:03 | NUR ---
CASE MANAGEMENT DISCHARGE FOLLOW UP: T/c to pt, no answer, voicemail box is full. Will try to call again at a later time. Addendum: 11/01/20 at 1546 by Odalys Lopez RN [phone] T/c to pt, no answer, VM box full. Unable to contact pt.
== END 2020-10-31 12:30 | disposition home or self-care (01) ==
LOC: SSTAY O 13:56 → MED 3N 17:12
PROVIDERS: ADMIT Family Medicine; ATTEND Family Medicine
DX: I12.0 Hypertensive chronic kidney disease with stage 5 chronic kidney disease or end stage renal disease (principal); N18.6 End stage renal disease; I25.10 Atherosclerotic heart disease of native coronary artery without angina pectoris; E78.5 Hyperlipidemia, unspecified; Z87.891 Personal history of nicotine dependence; Z99.2 Dependence on renal dialysis; Z79.899 Other long term (current) drug therapy; Z88.2 Allergy status to sulfonamides; Z91.041 Radiographic dye allergy status; Z91.040 Latex allergy status; Z91.048 Other nonmedicinal substance allergy status
CPT/HCPCS: 36415; 80048; 83735; 84100; 85025; 87340; 90935; 93005; 93459; 96372; 96374; 96375; 96376; C1760; C1769; G0378; J0780; J1644; J2001; J2250; J2405; J2930; J3010; Q0163; Q9967; 99152; 99153; A4620; A6258

== ENCOUNTER 2021-02-26 13:25 | Inpatient (IN) | payer BC, MEDICAID ==
[~2021-02-26] VITALS: Ht 167.6 cm; Wt 91.8 kg
[~2021-02-26 13:25] MED LIST changes: +ACET-1025 PO; +B-CO1TAB PO; -CYCL-1 PO; -DIPH25TA25 PO; +FERR210T PO; +FURO80TA3 PO; +HYDR-3965 PO; -LIDOcaine 1% (10mg/ml) 2ml vial SQ ONE; +LORA-269 PO; +METO-395 PO; -ONDA8TAB65 PO; -SEVE800T8 PO; -VARE0.5T PO; -VIT1TABL48 PO; -heparin 1,000 units/ml 10ml inj IV ONE; -normal saline 1000ml 250 ML IV PRN
[2021-02-26 14:23] LABS: BASOPHILS % (AUTO) 0.3 % (0-1); EOSINOPHILS % (AUTO) 0.3 % (0-6); HEMATOCRIT 30.6 % (35.0-45.0); HEMOGLOBIN 10.1 g/dl (12.0-16.0); LYMPHOCYTES # (AUTO) 1.3 X10'3 (1.1-4.8); LYMPHOCYTES % (AUTO) 10.1 % (21-51); MEAN CORPUSCULAR HEMOGLOBIN 32.1 PG (27.0-31.0); MEAN CORPUSCULAR HGB CONC 33.1 g/dL (33.0-36.5); MEAN PLATELET VOLUME 7.4 FL (7.4-10.4); MONOCYTES % (AUTO) 7.7 % (2-12); NEUTROPHILS # (AUTO) 10.9 X10'3 (1.8-7.7); NEUTROPHILS % (AUTO) 81.6 % (42-75); PLATELET COUNT 431 X10'3 (140-440); RED BLOOD COUNT 3.15 X10'6 (4.20-5.60); RED CELL DISTRIBUTION WIDTH 13.6 % (11.5-14.5); WHITE BLOOD COUNT 13.3 X10'3 (4.5-11.0)
[2021-02-26 14:43] LABS: ALBUMIN 3.2 G/DL (3.4-5.0); ANION GAP 15 (8-16); BILIRUBIN,TOTAL 0.5 MG/DL (0.1-1.0); BLOOD UREA NITROGEN 91 MG/DL (7-18); BUN/CREATININE RATIO 12.3 (6.6-38.0); CALCIUM 8.5 MG/DL (8.5-10.1); CHLORIDE 90 MMOL/L (99-107); GLUCOSE 135 MG/DL (70-104); POTASSIUM 5.6 MMOL/L (3.5-5.1); SODIUM 126 MMOL/L (135-145); TOTAL PROTEIN 6.7 G/DL (6.4-8.2); eGFR 5 ML/MIN
[2021-02-26 14:44] LABS: ALANINE AMINOTRANSFERASE 23 U/L (12-78); ALBUMIN/GLOBULIN RATIO 0.9 (1.1-1.5); ALKALINE PHOSPHATASE 64 IU/L (46-116); ASPARTATE AMINO TRANSFERASE 40 U/L (10-37)
[2021-02-26] MEDS ORDERED: furosemide 10 MG/1 ML 10ml inj IV ONE (15:25)
[2021-02-26] MEDS ORDERED: ondansetron/PF 4mg/2ml inj IV ONE (15:25)
[2021-02-26] MEDS ORDERED: HYDR-3964 PO (16:06)
[2021-02-26] MEDS ORDERED: DIPH-1055 PO (16:06)
[2021-02-26] MEDS ORDERED: METO-539 PO (16:06)
[2021-02-26] MEDS ORDERED: OMEP40CA21 PO (16:06)
[2021-02-26] MEDS ORDERED: ALBU17AE26 IH (16:06)
--- NOTE | 2021-02-26 16:11 | NUR ---
RN spoke to Jessica WEST from dialysis. Jessica WEST said that shecannot give hemodialysis in the ED but that as soon as Pt hets a room we can call the [facility] and they can come and run her HD.
[2021-02-26] MEDS ORDERED: VIT1TABL48 PO (16:21)
[2021-02-26] MEDS ORDERED: AURYXIA 210 MG PO (16:21)
[2021-02-26] MEDS ORDERED: CINA30TA2 PO (16:21)
[2021-02-26] MEDS ORDERED: CYCL-1 PO (16:21)
[2021-02-26] MEDS ORDERED: ONDA4TAB6 PO (16:21)
[2021-02-26] MEDS ORDERED: NITR0.4T51 SL (16:21)
[2021-02-26] MEDS ORDERED: magnesium 2GM in 50ml NS 50 ML IV PRN (16:55)
[2021-02-26] MEDS ORDERED: potassium Cl 40MEQ/1/2NS 520ml 520 ML IV PRN ×2 (16:55)
[2021-02-26] MEDS ORDERED: acetaminophen 325mg tablet PO PRN ×2 (16:55)
[2021-02-26] MEDS ORDERED: magnesium 4gm in 100ml NS 100 ML IV PRN (16:55)
[2021-02-26] MEDS ORDERED: magnesium Cl slow-release 64mg tablet PO PRN (16:55)
[2021-02-26] MEDS ORDERED: potassium Cl 20 mEq SR tablet PO PRN ×2 (16:55)
[2021-02-26] MEDS: HYDROcodone/acetaminophen 5mg/325mg tablet PO PRN (20:02)
[2021-02-26] MEDS: K and/or MAG REPLACEMENT MC SCH (20:03)
[2021-02-26] MEDS ORDERED: nitroGLYCERIN 0.4mg SUBLingual tab SL PRN (21:55)
[2021-02-26] MEDS ORDERED: HYDROcodone/acetaminophen 5mg/325mg tablet PO PRN (21:55)
[2021-02-26] MEDS ORDERED: non-formulary drug (Acetaminophen (Tylenol Extra Strength) 1 TAB) PO PRN (21:55)
[2021-02-26] MEDS ORDERED: LORazepam 1 MG tablet PO PRN (21:55)
[2021-02-26] MEDS ORDERED: diphenhydrAMINE 25mg capsule PO PRN (21:55)
[2021-02-26] MEDS ORDERED: ondansetron 4mg rapidly disintigrating tab PO PRN (22:10)
[2021-02-27] MEDS: HYDROcodone/acetaminophen 5mg/325mg tablet PO PRN ×3 (02:00→12:07)
--- NOTE | 2021-02-27 02:03 | NUR ---
some urine on chux, changed, pt tucked back into bed and 2 warmed blankets next to her skin. Asst pt to bed. Sister at bs.
[2021-02-27 02:21] LABS: ALBUMIN 3.1 G/DL (3.4-5.0); ANION GAP 14 (8-16); BLOOD UREA NITROGEN 94 MG/DL (7-18); BUN/CREATININE RATIO 12.5 (6.6-38.0); CALCIUM 8.5 MG/DL (8.5-10.1); CHLORIDE 89 MMOL/L (99-107); CREATININE 7.55 MG/DL (0.40-0.90); GLUCOSE 103 MG/DL (70-104); POTASSIUM 5.4 MMOL/L (3.5-5.1); SODIUM 125 MMOL/L (135-145); TOTAL CARBON DIOXIDE 22.4 MMOL/L (24-32); eGFR 5 ML/MIN
[2021-02-27 02:28] LABS: BASOPHILS % (AUTO) 0.3 % (0-1); EOSINOPHILS % (AUTO) 0.2 % (0-6); HEMOGLOBIN 10.1 g/dl (12.0-16.0); LYMPHOCYTES # (AUTO) 1.3 X10'3 (1.1-4.8); LYMPHOCYTES % (AUTO) 10.8 % (21-51); MEAN CORPUSCULAR HEMOGLOBIN 32.3 PG (27.0-31.0); MEAN CORPUSCULAR HGB CONC 33.6 g/dL (33.0-36.5); MEAN CORPUSCULAR VOLUME 96.1 FL (78-98); MEAN PLATELET VOLUME 7.2 FL (7.4-10.4); MONOCYTES # (AUTO) 0.8 X10'3 (0-0.9); MONOCYTES % (AUTO) 6.5 % (2-12); NEUTROPHILS # (AUTO) 10.3 X10'3 (1.8-7.7); NEUTROPHILS % (AUTO) 82.2 % (42-75); PLATELET COUNT 438 X10'3 (140-440); RED BLOOD COUNT 3.12 X10'6 (4.20-5.60); RED CELL DISTRIBUTION WIDTH 13.7 % (11.5-14.5); WHITE BLOOD COUNT 12.5 X10'3 (4.5-11.0)
[2021-02-27] MEDS: albuterol 2.5 MG/3 ML nebule NEB PRN (04:20)
--- NOTE | 2021-02-27 04:25 | NUR ---
PT CALLING FOR HELP AND REPORTS SHE "CANT BREATH". RR30 AND SPO2 ON 2 L 94%. RN ANGELO AT BEDSIDE AND REPROTS PT WITH INCREASED WHEEZING. RT PAGED FOR SVN. DR. AMES PAGED WITH TEXT ABOUT ABOVE AND REQUESTED ATIVAN IV DOSE FOR ANXIETY. PT REPORTS SHE TAKES A TAB OF ATIVAN PRIOR TO DIALYSIS. PTS SISTER AT BEDSIDE. RT NOW AT BEDSIDE FOR SVN.
[2021-02-27] MEDS: ondansetron/PF 4mg/2ml inj IV PRN ×2 (06:41→12:12)
--- NOTE | 2021-02-27 07:16 | NUR ---
Attempted to call report; RN to assume care will call back.
--- NOTE | 2021-02-27 07:30 | NUR ---
Patient in room ED. I have received report from Teresa WEST and had the opportunity to ask questions and assume patient care.
[2021-02-27] MEDS ORDERED: LIDOcaine 1% (10mg/ml) 2ml vial SQ ONE (08:00)
[2021-02-27] MEDS ORDERED: EPOETIN ALFA-EPBX 20,000 UNIT/ML 1 ML MDV IV ONE (08:00)
[2021-02-27] MEDS: AURYXIA 210 MG PO SCH ×3 (08:00→18:00)
[2021-02-27] MEDS ORDERED: heparin 1,000 units/ml 10ml inj IV ONE (08:00)
[2021-02-27] MEDS: K and/or MAG REPLACEMENT MC SCH ×2 (08:00→20:00)
[2021-02-27] MEDS ORDERED: B COMPLEX WITH VITAMIN C PO SCH (08:00)
--- NOTE | 2021-02-27 08:00 | NUR ---
Patient arrived from ED, orders are placed for dialysis. Patient states she has missed her last 3 dialysis treatments due to not feeling well. Patient placed on O2 2 liters sating 98% and breathing well at this time, No distress. All needs met at this time.
[2021-02-27 08:04] VITALS: BP 142/76
[2021-02-27] MEDS: aspirin 81mg tablet.DR PO SCH (08:37)
[2021-02-27] MEDS: furosemide 40mg tablet PO SCH ×2 (08:37→20:51)
[2021-02-27] MEDS: pantoprazole 40mg Tablet.DR PO SCH (08:37)
[2021-02-27] MEDS: metoprolol succinate 25mg (24-HOUR) SR. Tablet PO SCH (08:37)
[2021-02-27] MEDS: HYDROchlorothiazide 25mg tablet PO SCH (08:37)
[2021-02-27] MEDS: folic acid/vitamin B complex w/vitamin C 0.8mg tablet PO SCH (08:37)
[2021-02-27 11:00] VITALS: BP 140/70
[2021-02-27 15:00] VITALS: BP 155/76
--- NOTE | 2021-02-27 18:21 | NUR ---
Problems reprioritized. Patient report given, questions answered & plan of care reviewed with Elise RN at Bedside.
[2021-02-27 19:00] VITALS: BP 91/50
[2021-02-28 02:00] VITALS: BP 139/46
[2021-02-28] MEDS: HYDROcodone/acetaminophen 5mg/325mg tablet PO PRN ×2 (05:19→10:09)
[2021-02-28 06:00] VITALS: BP 132/66
--- NOTE | 2021-02-28 06:00 | NUR ---
Patient in room PCU 3023. I have received report from kita cohen and had the opportunity to ask questions and assume patient care.
[2021-02-28] MEDS: K and/or MAG REPLACEMENT MC SCH ×2 (08:00→20:00)
[2021-02-28] MEDS: AURYXIA 210 MG PO SCH ×3 (08:00→20:30)
--- NOTE | 2021-02-28 08:00 | NUR ---
pt says her Fistula occluded on left arm. two cotton drsgs in place. she has a pulse and faint thrill, unable to auscultate bruit.
[2021-02-28] MEDS: cinacalcet 30mg tablet PO SCH (08:28)
[2021-02-28] MEDS: metoprolol succinate 25mg (24-HOUR) SR. Tablet PO SCH (08:28)
[2021-02-28] MEDS: aspirin 81mg tablet.DR PO SCH (08:28)
[2021-02-28] MEDS: HYDROchlorothiazide 25mg tablet PO SCH (08:28)
[2021-02-28] MEDS: albuterol 2.5 MG/3 ML nebule NEB PRN ×4 (08:28→21:00)
[2021-02-28] MEDS: folic acid/vitamin B complex w/vitamin C 0.8mg tablet PO SCH (08:30)
[2021-02-28] MEDS: pantoprazole 40mg Tablet.DR PO SCH (08:30)
[2021-02-28] MEDS: furosemide 40mg tablet PO SCH ×2 (08:30→20:30)
[2021-02-28 08:33] LABS: BASOPHILS % (AUTO) 0.1 % (0-1); EOSINOPHILS % (AUTO) 0 % (0-6); HEMOGLOBIN 10.4 g/dl (12.0-16.0); LYMPHOCYTES # (AUTO) 0.5 X10'3 (1.1-4.8); LYMPHOCYTES % (AUTO) 2.2 % (21-51); MEAN CORPUSCULAR HEMOGLOBIN 31.7 PG (27.0-31.0); MEAN CORPUSCULAR HGB CONC 32.5 g/dL (33.0-36.5); MEAN CORPUSCULAR VOLUME 97.7 FL (78-98); MEAN PLATELET VOLUME 7.4 FL (7.4-10.4); MONOCYTES # (AUTO) 0.6 X10'3 (0-0.9); MONOCYTES % (AUTO) 2.3 % (2-12); NEUTROPHILS # (AUTO) 23.2 X10'3 (1.8-7.7); NEUTROPHILS % (AUTO) 95.4 % (42-75); PLATELET COUNT 442 X10'3 (140-440); RED BLOOD COUNT 3.27 X10'6 (4.20-5.60); RED CELL DISTRIBUTION WIDTH 13.7 % (11.5-14.5); WHITE BLOOD COUNT 24.3 X10'3 (4.5-11.0)
[2021-02-28 08:44] LABS: ALBUMIN 2.9 G/DL (3.4-5.0); ANION GAP 16 (8-16); BLOOD UREA NITROGEN 62 MG/DL (7-18); BUN/CREATININE RATIO 10.7 (6.6-38.0); CALCIUM 8.1 MG/DL (8.5-10.1); CHLORIDE 93 MMOL/L (99-107); CREATININE 5.77 MG/DL (0.40-0.90); GLUCOSE 133 MG/DL (70-104); MAGNESIUM 2.3 MG/DL (1.5-2.4); POTASSIUM 5.2 MMOL/L (3.5-5.1); SODIUM 131 MMOL/L (135-145); TOTAL CARBON DIOXIDE 21.8 MMOL/L (24-32); eGFR 7 ML/MIN
--- NOTE | 2021-02-28 09:00 | NUR ---
repositioned pt to sitting position and confirmed she has a positive bruit and thrill
[2021-02-28 10:32] LABS: BURR CELLS 1+; PLATELET ESTIMATE NORMAL; TOTAL CELLS COUNTED 100; TOXIC GRANULATION 1+
[2021-02-28 11:00] VITALS: BP 126/44
--- NOTE | 2021-02-28 12:53 | NUR ---
PAGER ID: [phone] MESSAGE: [id number] Deepali Reilly- WBC 24.3 today. NO ABX ORDERED currently. Lyndsay [phone]
[2021-02-28 15:00] VITALS: BP 118/59
[2021-02-28] MEDS: ceFAZolin/D5W- 1GM premix 50 ML IV SCH ×2 (16:24→23:19)
--- NOTE | 2021-02-28 16:30 | NUR ---
re-confirmed positive bruit and thrill to Left arm Fistula
[2021-02-28 18:00] VITALS: BP 129/40
--- NOTE | 2021-02-28 18:40 | NUR ---
Problems reprioritized. Patient report given, questions answered & plan of care reviewed with ktia cohen.
[2021-02-28 22:00] VITALS: BP 101/31
[2021-03-01] VITALS (8 sets, daily range): BP systolic 82–143; BP diastolic 49–89
[2021-03-01] MEDS: guaiFENesin/codeine phos 10ml UD oral syrup PO PRN ×2 (03:34→16:15)
[2021-03-01] MEDS: albuterol 2.5 MG/3 ML nebule NEB PRN ×2 (03:37→07:25)
[2021-03-01 07:55] LABS: BASOPHILS % (AUTO) 0.1 % (0-1); EOSINOPHILS % (AUTO) 0 % (0-6); HEMATOCRIT 25.7 % (35.0-45.0); HEMOGLOBIN 8.6 g/dl (12.0-16.0); LYMPHOCYTES # (AUTO) 0.8 X10'3 (1.1-4.8); LYMPHOCYTES % (AUTO) 3.2 % (21-51); MEAN CORPUSCULAR HEMOGLOBIN 32.1 PG (27.0-31.0); MEAN CORPUSCULAR HGB CONC 33.5 g/dL (33.0-36.5); MEAN CORPUSCULAR VOLUME 95.9 FL (78-98); MEAN PLATELET VOLUME 6.8 FL (7.4-10.4); MONOCYTES # (AUTO) 0.9 X10'3 (0-0.9); MONOCYTES % (AUTO) 3.6 % (2-12); NEUTROPHILS # (AUTO) 23.7 X10'3 (1.8-7.7); NEUTROPHILS % (AUTO) 93.1 % (42-75); PLATELET COUNT 416 X10'3 (140-440); RED BLOOD COUNT 2.68 X10'6 (4.20-5.60)
[2021-03-01] MEDS: AURYXIA 210 MG PO SCH ×3 (08:00→18:00)
[2021-03-01] MEDS: K and/or MAG REPLACEMENT MC SCH ×2 (08:00→20:00)
[2021-03-01] MEDS: aspirin 81mg tablet.DR PO SCH (08:00)
[2021-03-01 08:10] LABS: WHITE BLOOD COUNT 25.5 X10'3 (4.5-11.0)
[2021-03-01] MEDS: ceFAZolin/D5W- 1GM premix 50 ML IV SCH ×3 (08:16→23:18)
[2021-03-01] MEDS: metoprolol succinate 25mg (24-HOUR) SR. Tablet PO SCH (08:16)
[2021-03-01] MEDS: pantoprazole 40mg Tablet.DR PO SCH (08:16)
[2021-03-01] MEDS: HYDROchlorothiazide 25mg tablet PO SCH (08:16)
[2021-03-01] MEDS: folic acid/vitamin B complex w/vitamin C 0.8mg tablet PO SCH (08:16)
[2021-03-01] MEDS: furosemide 40mg tablet PO SCH ×2 (08:17→23:16)
[2021-03-01 08:23] LABS: ALBUMIN 2.6 G/DL (3.4-5.0); ANION GAP 17 (8-16); BLOOD UREA NITROGEN 77 MG/DL (7-18); BUN/CREATININE RATIO 10.6 (6.6-38.0); CALCIUM 7.8 MG/DL (8.5-10.1); CHLORIDE 91 MMOL/L (99-107); CREATININE 7.29 MG/DL (0.40-0.90); GLUCOSE 101 MG/DL (70-104); MAGNESIUM 2.2 MG/DL (1.5-2.4); POTASSIUM 5.5 MMOL/L (3.5-5.1); SODIUM 131 MMOL/L (135-145); TOTAL CARBON DIOXIDE 23.3 MMOL/L (24-32); eGFR 6 ML/MIN
--- NOTE | 2021-03-01 08:27 | NUR ---
Paged Dr Dinero regarding critical lab PAGER ID: [phone] MESSAGE: [phone] Deepali Ponce. Patients WBC 25.5. PCU Crystal
[2021-03-01 09:16] LABS: PLATELET ESTIMATE NORMAL; POIKILOCYTOSIS FEW; TOTAL CELLS COUNTED 100
[2021-03-01] MEDS ORDERED: EPOETIN ALFA-EPBX 20,000 UNIT/ML 1 ML MDV IV ONE (09:55)
[2021-03-01] MEDS ORDERED: heparin 1,000 units/ml 10ml inj IV ONE (09:55)
[2021-03-01] MEDS ORDERED: heparin 1,000unit/ml 10ml vial 10 ML IV ONE (09:55)
[2021-03-01] MEDS ORDERED: albumin (human) 25% 100ml IV 100 ML IV PRN (09:55)
[2021-03-01] MEDS ORDERED: heparin 1,000 units/ml 10ml inj HE ONE ×2 (10:00)
[2021-03-01] MEDS: HYDROcodone/acetaminophen 5mg/325mg tablet PO PRN ×3 (10:15→23:15)
[2021-03-01] MEDS ORDERED: LIDOcaine 1% (10mg/ml) 2ml vial SQ ONE (10:30)
[2021-03-01] MEDS: LIDOcaine 5% patch TP PRN (10:40)
[2021-03-01 16:55] LABS: BFSOURCE LEFT PLEURAL FLD
[2021-03-01 17:08] LABS: GLUCOSE,BODY FLUID 106 MG/DL
[2021-03-01 17:13] LABS: LYMPHOCYTES,BODY FLUID 13 %; MONOCYTES,BODY FLUID 25 %; NEUTROPHILS,BODY FLUID 62 %
[2021-03-01 17:14] LABS: BF MESOTHELIAL CELLS FEW; BF RBC COUNT 84750 /CU MM; BF WBC COUNT 1713 /CU MM (0-1000); BFAPPEAR BLOODY; BFCOLOR RED; BFVOLUME 65 ML
[2021-03-01 17:20] LABS: LDH,BODY FLUID 811 U/L
--- NOTE | 2021-03-01 18:35 | NUR ---
Problems reprioritized. Patient report given, questions answered & plan of care reviewed with Lisa WEST. Patient stable at transfer of care.
[2021-03-01] MEDS: lactobacillus rhamnosus 10,000 MMU CELLS/CAPSULE PO SCH (23:15)
[2021-03-02 02:00] VITALS: BP 98/62
[2021-03-02] MEDS: HYDROcodone/acetaminophen 5mg/325mg tablet PO PRN (05:10)
[2021-03-02 06:00] VITALS: BP 160/79
--- NOTE | 2021-03-02 06:30 | NUR ---
Patient in room PCU 3023. I have received report from Sofi WEST and had the opportunity to ask questions and assume patient care.
--- NOTE | 2021-03-02 06:32 | NUR ---
Patient in room PCU 3023. I have received report from Sofi and had the opportunity to ask questions and assume patient care.
[2021-03-02 07:18] LABS: BASOPHILS % (AUTO) 0.1 % (0-1); EOSINOPHILS % (AUTO) 0.1 % (0-6); HEMATOCRIT 26.6 % (35.0-45.0); HEMOGLOBIN 8.7 g/dl (12.0-16.0); LYMPHOCYTES # (AUTO) 0.8 X10'3 (1.1-4.8); LYMPHOCYTES % (AUTO) 3.9 % (21-51); MEAN CORPUSCULAR HEMOGLOBIN 32.1 PG (27.0-31.0); MEAN CORPUSCULAR HGB CONC 32.8 g/dL (33.0-36.5); MEAN PLATELET VOLUME 7.1 FL (7.4-10.4); MONOCYTES # (AUTO) 0.7 X10'3 (0-0.9); MONOCYTES % (AUTO) 3.7 % (2-12); NEUTROPHILS # (AUTO) 17.9 X10'3 (1.8-7.7); NEUTROPHILS % (AUTO) 92.2 % (42-75); PLATELET COUNT 426 X10'3 (140-440); RED BLOOD COUNT 2.71 X10'6 (4.20-5.60); RED CELL DISTRIBUTION WIDTH 14.1 % (11.5-14.5); WHITE BLOOD COUNT 19.4 X10'3 (4.5-11.0)
[2021-03-02 07:21] LABS: ALBUMIN 2.7 G/DL (3.4-5.0); ANION GAP 15 (8-16); BLOOD UREA NITROGEN 52 MG/DL (7-18); BUN/CREATININE RATIO 8.6 (6.6-38.0); CALCIUM 7.6 MG/DL (8.5-10.1); CHLORIDE 93 MMOL/L (99-107); CREATININE 6.04 MG/DL (0.40-0.90); GLUCOSE 105 MG/DL (70-104); MAGNESIUM 2.1 MG/DL (1.5-2.4); POTASSIUM 4.7 MMOL/L (3.5-5.1); SODIUM 132 MMOL/L (135-145); TOTAL CARBON DIOXIDE 24.5 MMOL/L (24-32); eGFR 7 ML/MIN
[2021-03-02] MEDS: AURYXIA 210 MG PO SCH ×4 (08:00→18:49)
[2021-03-02] MEDS: K and/or MAG REPLACEMENT MC SCH ×2 (08:00→20:00)
[2021-03-02] MEDS: folic acid/vitamin B complex w/vitamin C 0.8mg tablet PO SCH (09:17)
[2021-03-02] MEDS: pantoprazole 40mg Tablet.DR PO SCH (09:17)
[2021-03-02] MEDS: HYDROchlorothiazide 25mg tablet PO SCH (09:17)
[2021-03-02] MEDS: ceFAZolin/D5W- 1GM premix 50 ML IV SCH ×2 (09:17→17:43)
[2021-03-02] MEDS: LIDOcaine 5% patch TP PRN (09:17)
[2021-03-02] MEDS: lactobacillus rhamnosus 10,000 MMU CELLS/CAPSULE PO SCH ×2 (09:18→20:24)
[2021-03-02] MEDS: metoprolol succinate 25mg (24-HOUR) SR. Tablet PO SCH (09:18)
[2021-03-02] MEDS: furosemide 40mg tablet PO SCH ×2 (09:18→20:24)
[2021-03-02] MEDS: aspirin 81mg tablet.DR PO SCH (09:18)
[2021-03-02 11:00] VITALS: BP 150/61
[2021-03-02] MEDS: morphine 2 MG/ML inj. syringe IV PRN ×3 (12:41→22:31)
[2021-03-02 15:00] VITALS: BP 124/57
--- NOTE | 2021-03-02 18:38 | NUR ---
Problems reprioritized. Patient report given, questions answered & plan of care reviewed with Dionne Marquis.
--- NOTE | 2021-03-02 18:44 | NUR ---
[place] documentation: I have reviewed and agree with all interventions, assessments performed and documented by Aron WEST.
--- NOTE | 2021-03-02 18:45 | NUR ---
[place] Medication Administration: For this medication-pass time frame, all medication were reviewed, dispensed, administered and documented per hospital policy by Aron WEST.
--- NOTE | 2021-03-02 18:49 | NUR ---
pt only took 2 of her auryxia, she refused the third pill
[2021-03-02] MEDS: HYDROcodone/acetaminophen 10/325mg tab PO PRN (19:08)
[2021-03-02 23:03] VITALS: BP 133/73
[2021-03-03] MEDS: ceFAZolin/D5W- 1GM premix 50 ML IV SCH ×2 (00:39→07:39)
--- NOTE | 2021-03-03 02:03 | NUR ---
pt prefers to be without a gown. gown removed as she was all tangled up in it. c/o IV bothering her, feels like she is being choked by it. attempted to start a new iv without success. pt is saline locked, so she has been unhooked from iv pump and extra tape and extension removed which helped a little bit.
[2021-03-03] MEDS ORDERED: LORazepam 1 MG tablet PO PRN (02:20)
[2021-03-03] MEDS: HYDROcodone/acetaminophen 10/325mg tab PO PRN ×2 (02:25→10:05)
[2021-03-03 02:28] VITALS: BP 111/57
--- NOTE | 2021-03-03 03:01 | NUR ---
pt still is afraid the iv will tangle up her oxygen and choke her. education provided. she stated she is feeling anxious. orders obtained and meds given. pt sitting side of bed, resting head on table. VSS
[2021-03-03 06:00] VITALS: BP 133/55
[2021-03-03 06:12] LABS: BASOPHILS % (AUTO) 0.1 % (0-1); EOSINOPHILS # (AUTO) 0.1 X10'3 (0-0.9); EOSINOPHILS % (AUTO) 0.4 % (0-6); HEMATOCRIT 26.5 % (35.0-45.0); HEMOGLOBIN 8.5 g/dl (12.0-16.0); LYMPHOCYTES # (AUTO) 1.1 X10'3 (1.1-4.8); LYMPHOCYTES % (AUTO) 7.3 % (21-51); MEAN CORPUSCULAR HEMOGLOBIN 31.6 PG (27.0-31.0); MEAN CORPUSCULAR HGB CONC 32.1 g/dL (33.0-36.5); MEAN CORPUSCULAR VOLUME 98.4 FL (78-98); MEAN PLATELET VOLUME 7.1 FL (7.4-10.4); MONOCYTES # (AUTO) 0.7 X10'3 (0-0.9); MONOCYTES % (AUTO) 4.9 % (2-12); NEUTROPHILS # (AUTO) 13.2 X10'3 (1.8-7.7); NEUTROPHILS % (AUTO) 87.3 % (42-75); PLATELET COUNT 397 X10'3 (140-440); RED BLOOD COUNT 2.69 X10'6 (4.20-5.60); RED CELL DISTRIBUTION WIDTH 14.7 % (11.5-14.5); WHITE BLOOD COUNT 15.1 X10'3 (4.5-11.0)
--- NOTE | 2021-03-03 06:12 | NUR ---
Problems reprioritized. Patient report given, questions answered & plan of care reviewed with Ariana and Britany RNs.
[2021-03-03 06:25] LABS: ALBUMIN 2.5 G/DL (3.4-5.0); ANION GAP 15 (8-16); BLOOD UREA NITROGEN 65 MG/DL (7-18); BUN/CREATININE RATIO 9.2 (6.6-38.0); CALCIUM 7.6 MG/DL (8.5-10.1); CHLORIDE 91 MMOL/L (99-107); GLUCOSE 82 MG/DL (70-104); MAGNESIUM 2.2 MG/DL (1.5-2.4); POTASSIUM 4.5 MMOL/L (3.5-5.1); SODIUM 129 MMOL/L (135-145); TOTAL CARBON DIOXIDE 23.1 MMOL/L (24-32); eGFR 6 ML/MIN
--- NOTE | 2021-03-03 06:37 | NUR ---
Patient in room PCU 3023. I have received report from Gaby WEST and had the opportunity to ask questions and assume patient care.
--- NOTE | 2021-03-03 06:47 | NUR ---
Patient in room PCU 3023. I have received report from Gaby Marquis and had the opportunity to ask questions and assume patient care.
[2021-03-03] MEDS: lactobacillus rhamnosus 10,000 MMU CELLS/CAPSULE PO SCH (07:39)
[2021-03-03] MEDS: pantoprazole 40mg Tablet.DR PO SCH (07:40)
[2021-03-03] MEDS: folic acid/vitamin B complex w/vitamin C 0.8mg tablet PO SCH (07:40)
[2021-03-03] MEDS: aspirin 81mg tablet.DR PO SCH (07:40)
[2021-03-03] MEDS: furosemide 40mg tablet PO SCH (07:40)
[2021-03-03] MEDS: metoprolol succinate 25mg (24-HOUR) SR. Tablet PO SCH (07:40)
[2021-03-03] MEDS: HYDROchlorothiazide 25mg tablet PO SCH (07:40)
[2021-03-03] MEDS: cinacalcet 30mg tablet PO SCH (07:40)
[2021-03-03] MEDS: LIDOcaine 5% patch TP PRN (07:41)
[2021-03-03] MEDS: K and/or MAG REPLACEMENT MC SCH (08:00)
[2021-03-03] MEDS: AURYXIA 210 MG PO SCH (08:00)
[2021-03-03] MEDS ORDERED: HYDR-3972 PO ×3 (08:44→08:57)
[2021-03-03] MEDS ORDERED: CEPH250T PO (11:19)
--- NOTE | 2021-03-03 11:27 | NUR ---
1048- Chest tube removed by Wes THOMAS
--- NOTE | 2021-03-03 12:40 | NUR ---
Patient is stable for discharge per MD orders. All discharge instructions reviewed with patient and all questions answered. New prescriptions electronically sent to pharmacy. Medications received from pharmacy and sent home with patient. PIV discontinued. air sampling and monitoring discontinued. [employer] notified. Belongings collected and sent with patient. Pt wheeled to lobby and left with .
== END 2021-03-03 12:40 | disposition home health service (06) | DRG 862 ==
LOC: ER 13:25 → ED HOLD 16:51 → PCU 3S 02-27 07:51
PROVIDERS: ADMIT Internal Medicine; ATTEND Internal Medicine
PROC: 5A1D70Z Performance of Urinary Filtration, Intermittent, Less than 6 Hours Per Day (ICD-10-PCS; 2021-02-27)
PROC: 0W9B30Z Drainage of Left Pleural Cavity with Drainage Device, Percutaneous Approach (ICD-10-PCS; principal; 2021-03-01)
PROC: 5A1D70Z Performance of Urinary Filtration, Intermittent, Less than 6 Hours Per Day (ICD-10-PCS; 2021-03-01)
DX: T81.49XA Infection following a procedure, other surgical site, initial encounter (principal); N18.6 End stage renal disease; J96.21 Acute and chronic respiratory failure with hypoxia; I24.1 Dressler's syndrome; I13.2 Hypertensive heart and chronic kidney disease with heart failure and with stage 5 chronic kidney disease, or end stage renal disease; I31.3 Pericardial effusion (noninflammatory); E87.1 Hypo-osmolality and hyponatremia; J91.8 Pleural effusion in other conditions classified elsewhere; K21.9 Gastro-esophageal reflux disease without esophagitis; D64.9 Anemia, unspecified; Y83.8 Other surgical procedures as the cause of abnormal reaction of the patient, or of later complication, without mention of misadventure at the time of the procedure; I25.10 Atherosclerotic heart disease of native coronary artery without angina pectoris; M54.9 Dorsalgia, unspecified; R11.2 Nausea with vomiting, unspecified; I50.9 Heart failure, unspecified; Z95.1 Presence of aortocoronary bypass graft; Z99.2 Dependence on renal dialysis; I25.2 Old myocardial infarction; Z79.82 Long term (current) use of aspirin; Z79.899 Other long term (current) drug therapy; Z88.2 Allergy status to sulfonamides; Z91.041 Radiographic dye allergy status; Z91.040 Latex allergy status; Y92.89 Other specified places as the place of occurrence of the external cause
CPT/HCPCS: 32557; 36415; 71045; 71046; 71250; 80048; 80053; 82945; 83615; 83735; 83880; 83986; 84484; 85007; 85025; 87070; 87081; 89051; 93005; 94640; 94760; 96374; 96375; 97116; 97161; 97530; 99285; G0257; G0378; J0604; J0690; J1644; J1940; J2001; J2270; J2405; Q4081